=== PATIENT | male | born 1960 | race Caucasian/White ===

== ENCOUNTER → 2024-04-08 13:45 | Outpatient (REF) | payer OTHER, SELFPAY | LOC: RAD 13:45 | PROVIDERS: ATTENDING PHYSICIAN Internal Medicine; FAMILY PHYSICIAN Physician Assistant Medical | DX: R05.1 Acute cough (principal) | CPT/HCPCS: 71046 ==

== ENCOUNTER → 2024-07-02 13:21 | Outpatient (REF) | payer SELFPAY | LOC: RAD 13:21 | PROVIDERS: ATTENDING PHYSICIAN Physician Assistant Medical | DX: E78.5 Hyperlipidemia, unspecified (principal) | CPT/HCPCS: 75571 ==